=== PATIENT | female | born 1995 | race African-American/Black ===

== ENCOUNTER 2017-02-07 10:37 | Day surgery (SDC) | payer BC, OTHER ==
[2017-02-07 11:10] VITALS: BMI 50.4
[2017-02-07 11:12] VITALS: BP 128/65; TEMP 100
[2017-02-07] MEDS ORDERED: Lactated Ringer's 500 ML IV SCH (12:15)
--- NOTE | 2017-02-07 12:16 | PDOC.EVN ---
Event Note - Event Note Event Note: 02/07/17 @ 1150: L&D Triage: Case presented to me per Dr Dailey (resident oncall). Patient is a 22 year old G1 at 35 weeks 0 days with episode of spotting. No large LOF but unsure if leaking. Good FM. Denies issues. She sees a physician at [facility]. ROS: negative except as per HPI. ALL: Various: Amox, PCN, Sulfa. OB Hx: G1 Physical: 11.0 other vitals wnl NAD Obses Abd soft Back- no CVAT Pelvic deferred until sent Monitors: NST reactive, 150s. No contractions on [employer]. Assessment: G1 at 35 weeks 0 days with episode of spotting. ? leak. Plan: 1. Amnisure 2. Cervical exam pending 3. IVF hydrate 4. Follow temps 5. CBC check
--- NOTE | 2017-02-07 12:19 | PDOC.LDHP ---
Labor and Delivery H&P Chief complaint: loss of fluid HPI: Nuria is a 22 yo at 35.0w by LMP/reported 1T sono who presents for concern for vaginal bleeding/LOF. She states that she was at work when at approximately 940 she noted a dark spot on her chair. She sits on a brown leather chair and is not sure if the spot was blood of fluid but was concerned it was blood. She wiped it off and sat back down when she noted it again. She then went to the restroom and noticed clear fluid on her pants and was concerned she had urinated. She was not sure what to do and called her OB but due to a long wait time decided to hang up and call EMS. She endorses good movement, denies contractions or any vaginal bleeding this . She did not receive a Rhogam shot at 28 weeks but states she got Tdap. She does not know her blood type. She denies any other symptoms including URI, nausea, vomiting, diarrhea or sick contacts. 10 point ROS otherwise negative apart from stated above. Current gestational age (weeks): 35 Due date: 03/14/17 Dating criteria: last menstrual period, first trimester ultrasound Grav: 1 Para: 0 OB History Details: Uncomplicated apart from chlamydia s/p treatment and reported BRAD. Growth ultrasound last month per patient to make sure baby was growing ok. Told by OB all was well. Current complications: none Abnormal US findings: No (none per patient) Past Medical History: Acne Current medications: pre-theresa vitamins Previous surgical history: other Allergies/Adverse Reactions: Allergies Allergy/AdvReac Type Severity Reaction Status Date / Time amoxicillin Allergy Hives Verified 02/07/17 11:09 chocolate flavor Allergy Rash Verified 02/07/17 11:10 Penicillins Allergy Hives Verified 02/07/17 11:07 Sulfa (Sulfonamide Allergy Hives Verified 02/07/17 11:09 Antibiotics) sulfamethoxazole Allergy Hives Verified 02/07/17 11:09 [From Bactrim] trimethoprim [From Bactrim] Allergy Hives Verified 02/07/17 11:09 - Physical Exam Vital signs reviewed and normal: yes General: NAD Heart: RRR Lungs: nonlabored breathing Abdomen: NTTP Extremeties: no edema FHT: variability present (150/moderate/+accels/no decels, reassuring FHT) [place] contractions every: none - Vaginal Exam cm dilated: 0 Effacement: 0% Station: -3 - OB Labs Blood type: unknown RH: unknown Antibody Screen: unknown HIV: unknown RPR: unknown HEPSAg: unknown 1 hour GCT: unknown 3 hour GTT: unknown GBS: unknown Urine drug screen: not done - Assessment 22 yo at 35.0w by LMP/reported 1T sono here for concern for vaginal/ bleeding ROM 1. IUP - Concern for ROM - On SVE, thin white discharge with some clumping more consistent with BV and/ or yeast - Valsalva negative, no gross ROM on exam - Amnisure sent - NST - Will request records from Dr. Brian office - Blood type and Rh, CBC, VP3 and Gonorrhea/chlamydia sent, UA/UCx via straight cath - IV LR 500 mL bolus - Will await results and if any indication of labor, will consider steroids 2. Temp 100.0 - IV hydrate, monitor for signs/symptoms of infection 3. Initial concern for vaginal bleeding - None noted on SVE - Blood type and Rh and Rhogam if indicated Plan discussed with Dr. Vogel who will follow as well.
[2017-02-07 12:42] LABS: Amnisure Test No Membranes Rupture (No Rupture)
[2017-02-07 13:03] LABS: Bilirubin Negative (Negative); Blood, Urine Small (Negative); Glucose, Urine (Dipstick) Negative (Negative); Ketone, Urine Negative (Negative); Nitrite Negative (Negative); Protein, Urine (Dipstick) Trace mg/dL (Neg-Trace)
[2017-02-07 13:05] LABS: Bacteria/HPF None Seen HPF (None Seen)
--- NOTE | 2017-02-07 13:36 | PDOC.EVN ---
Event Note - Event Note Event Note: 02/07/17 @ 1330: I was informed by the patient's nurse that lab draws have failed. We will do oral water hydration and call lab to see if their lab draw is successful for the ordered CBC. Amnisure was negative. Strip reviewed.
[2017-02-07 13:37] LABS: Hyaline Casts/LPF 0-3 HYALINE CAST LPF (0-3 Hyaline)
[2017-02-07 14:15] LABS: #Basophils 0.1 thou/uL (0.0-0.2); #Eosinphils 0.1 thou/uL (0.0-0.7); #Lymphocytes 2.2 thou/uL (1.20-3.40); #Monocytes 0.6 thou/uL (0.11-0.59); #Neutrophils 6.7 thou/uL (1.40-6.50); %Basophils 0.5 % (0.0-1.0); %Eosinophils 0.6 % (0.0-10.0); %Lymphocytes 22.7 % (28.0-48.0); %Monocytes 6.3 % (0.0-4.0); Hematocrit 34.8 % (36.0-47.0); Mean Platelet Volume 7.2 fL (7.4-10.4); Red Blood Cell (RBC) Count 4.08 mill/uL (4.00-5.20); White Blood Cell (WBC) Count 9.6 thou/uL (4.8-10.8)
--- NOTE | 2017-02-07 15:22 | PDOC.EVN ---
Event Note - Event Note Event Note: 02/07/2017 @ 1520: Labs have returned. CBC normal, Urine with some blood (may be head induced or traumatic cath) but no nitirites, no LE, bacteria negative. VP3 shows BV and yeast. No evidence compromise. Temp normal. S. Feels better O. VSS Afebrile Monitor Cat 1 Assessment/Plan: Threatened PTL at 35 weeks. Amnisure negative. We will allow outpatient follow up and RX with Flagyl for 7 days and one dose of Difulcan.
[2017-02-08] MEDS ORDERED: Prenatal Vitamin 1 TAB PO SCH (09:00)
[2017-02-08] MEDS ORDERED: FLU VACC QS2017-18 36 mo. & older 0.5 ML SYRINGE IM ONE (09:00)
== END 2017-02-07 15:45 | disposition home or self-care (01) ==
LOC: L&D/OP 10:37
PROVIDERS: ATTEND Obstetrics & Gynecology
DX: O26.853 Spotting complicating pregnancy, third trimester (principal); O26.893 Other specified pregnancy related conditions, third trimester; Z3A.35 35 weeks gestation of pregnancy; Z79.899 Other long term (current) drug therapy; Z88.1 Allergy status to other antibiotic agents; Z88.0 Allergy status to penicillin; Z88.2 Allergy status to sulfonamides; Z91.018 Allergy to other foods
CPT/HCPCS: 36415; 81003; 81015; 84112; 85025; 86900; 86901; 87077; 87081; 87086; 87480; 87510; 87660